=== PATIENT | female | born 1940 | race African-American/Black ===

== ENCOUNTER 2017-07-30 01:14 | Emergency (ER) | payer MEDICARE ==
[~2017-07-30] VITALS: Ht 165.1 cm; Wt 61.0 kg
[2017-07-30 04:22] LABS: BASOPHILS % 0.6 % (0.0-2.0); EOSINOPHILS % 0.8 % (0.0-5.0); HEMATOCRIT. 39.5 % (36.0-48.0); LYMPHOCYTES % 18.8 % (20.0-50.0); MEAN CORPUSCULAR HEMOGLOBIN 28.9 pg (28.0-32.0); MEAN CORPUSCULAR VOLUME 88.3 fL (81.0-99.0); MEAN PLATELET VOLUME 9.2 fl (7.4-10.4); MONOCYTES % 6.5 % (2.0-8.0); NEUTROPHILS % 73.3 % (40.0-76.0); PLATELET 212 x1000/uL (130-400); RED BLOOD CELL COUNT 4.48 mill/uL (4.2-5.4); RED CELL DISTRIBUTION WIDTH 13.4 % (11.6-14.6)
[2017-07-30 04:31] LABS: CARBON DIOXIDE 30 mEq/L (21-32); CHLORIDE 101 mEq/L (98-107); TROPONIN I < 0.02 ng/mL (0.00-0.04)
[2017-07-30 06:23] VITALS: BP 122/77
== END 2017-07-30 06:27 | disposition home or self-care (01) ==
LOC: ER 01:14
DX: M54.2 Cervicalgia (principal); M62.838 Other muscle spasm; I10 Essential (primary) hypertension; R55 Syncope and collapse; Z88.2 Allergy status to sulfonamides; Z91.041 Radiographic dye allergy status; Z91.040 Latex allergy status
CPT/HCPCS: 36415; 70450; 71010; 80053; 84484; 85025; 93005; 99285

== ENCOUNTER 2019-03-19 15:07 | Emergency (ER) | payer MEDICARE ==
[~2019-03-19] VITALS: Ht 152.4 cm; Wt 59.0 kg
[2019-03-19] MEDS ORDERED: HYDR25TA PO (15:16)
[2019-03-19] MEDS ORDERED: METF-414 PO (15:16)
[2019-03-19] MEDS ORDERED: RALO60TA13 PO (15:16)
[2019-03-19 16:46] LABS: EOSINOPHILS % 1.1 % (0.0-5.0); HEMATOCRIT. 41.7 % (36.0-48.0); HEMOGLOBIN. 13.9 g/dL (12.0-16.0); LYMPHOCYTES % 23.7 % (20.0-50.0); MEAN CORPUSCULAR HEMOGLOBIN 29.8 pg (28.0-32.0); MEAN CORPUSCULAR VOLUME 89.5 fL (81.0-99.0); MEAN PLATELET VOLUME 9.2 fl (7.4-10.4); MONOCYTES % 5.8 % (2.0-8.0); NEUTROPHILS % 68.4 % (40.0-76.0); PLATELET 224 x1000/uL (130-400); RED BLOOD CELL COUNT 4.65 mill/uL (4.2-5.4)
[2019-03-19 16:50] LABS: CHLORIDE 103 mEq/L (98-107)
[2019-03-19 16:52] LABS: INR 1.2; PROTHROMBIN TIME 11.8 sec (9.6-11.0)
[2019-03-19 16:57] LABS: CLARITY URINE CLEAR (CLEAR); COLOR URINE YELLOW (YELLOW); KETONES URINE NEGATIVE (NEGATIVE); LEUKOCYTE ESTERASE URINE 3+ (NEGATIVE); NITRITE URINE NEGATIVE (NEGATIVE); OCCULT BLOOD URINE 1+ (NEGATIVE); PH URINE 7.5 (4.5-8.0); PROTEIN URINE NEGATIVE (NEGATIVE); SPECIFIC GRAVITY URINE 1.009 (1.005-1.030); UROBILINOGEN URINE 0.2 E.U./dL (0.2-1.0)
[2019-03-19 18:45] VITALS: BP 143/78
== END 2019-03-19 18:56 | disposition home or self-care (01) ==
LOC: ER 15:47 → CANBEDREQ 22:22
DX: R42 Dizziness and giddiness (principal); N39.0 Urinary tract infection, site not specified; R73.03 Prediabetes; I10 Essential (primary) hypertension; Z88.2 Allergy status to sulfonamides; Z91.041 Radiographic dye allergy status; Z91.040 Latex allergy status
CPT/HCPCS: 36415; 71045; 83880; 84484; 93005; 99284

== ENCOUNTER 2024-01-01 12:43 | Emergency (ER) | payer MEDICARE ==
[~2024-01-01] VITALS: Ht 165.1 cm; Wt 50.0 kg
[~2024-01-01 12:43] MED LIST: ATOR20TA MT; CLOP-31 MT; EMPA10TA MT; HYDR25TA PO; LATA2.5D14 EACHEYE; LISI20TA31 MT; METF-414 PO; RALO60TA13 PO; TIMO5DRO32 EACHEYE
[2024-01-01 12:47] VITALS: O2SAT 97
[2024-01-01 13:56] LABS: HEMATOCRIT. 40.8 % (36.0-48.0); HEMOGLOBIN. 13.8 g/dL (12.0-16.0); MEAN CORPUSCULAR HGB CONC 33.9 g/dL (31.0-37.0); MEAN CORPUSCULAR VOLUME 88.5 fL (81.0-99.0); MEAN PLATELET VOLUME 9.8 fl (7.4-10.4); PLATELET 199 x1000/uL (130-400); RED BLOOD CELL COUNT 4.61 mill/uL (4.2-5.4); RED CELL DISTRIBUTION WIDTH 13.4 % (11.6-14.6); WHITE BLOOD COUNT 4.5 x1000/uL (4.5-11.0)
[2024-01-01 14:01] LABS: CARBON DIOXIDE 31 mEq/L (21-32); CHLORIDE 102 mEq/L (98-107); POTASSIUM 3.8 mEq/L (3.5-5.1); SODIUM 139 mEq/L (136-145)
[2024-01-01 14:02] LABS: D-DIMER 0.19 mg/L FEU (<0.50); DIFFERENTIAL COMMENT 1; INR 1.1; PROTHROMBIN TIME 12.2 sec (9.6-11.0)
[2024-01-01 14:06] LABS: CREATININE 0.8 mg/dL (0.6-1.0); GLUCOSE 98 mg/dL (70-105)
[2024-01-01 14:07] LABS: TROPONIN I HIGH SENSITIVITY 4 ng/L (3.0-34); UREA NITROGEN BLOOD 14 mg/dL (9-23)
[2024-01-01 14:08] LABS: ALANINE AMINOTRANSFERASE 29 IU/L (10-49); ALBUMIN 4.5 g/dL (3.2-4.8); ASPARTATE AMINOTRANSFERASE 32 IU/L (<34)
[2024-01-01 14:09] LABS: BILIRUBIN TOTAL 0.7 mg/dL (0.1-1.0)
[2024-01-01 14:12] LABS: ETHANOL BLOOD < 10 mg/dL (<10)
[2024-01-01 14:33] LABS: BG BASE EXCESS 3.1 mmol/L (-2.0-2.0); BG CARBOXYHEMOGLOBIN 0.7 % (0.5-1.5); BG DEOXYHEMOGLOBIN 3.3 % (0.0-5.0); BG FRACTION INSPIRED OXYGEN 21; BG HCO3 ACT 27.3 mmol/L (22.0-26.0); BG METHEMOGLOBIN 0.3 % (0.0-1.5); BG OXYGEN SATURATION 96.7 % (92.0-98.5); BG OXYHEMOGLOBIN 95.7 % (94.0-97.0); BG PCO2 40.3 mmHg (35.0-45.0); BG PH 7.449 (7.350-7.450); BG PO2 82.8 mmHg (75.0-100.0); BG SAMPLE SITE RIGHT RADIAL; BG TOTAL HEMOGLOBIN 14.5 g/dL (12.0-18.0); BG VENT MODE ROOM AIR
[2024-01-01 14:57] LABS: PLATELET ESTIMATE NORMAL
[2024-01-01 16:42] VITALS: BP 159/72; PULSE 81; RESP 16; TEMP 98.1
== END 2024-01-01 16:49 | disposition home or self-care (01) ==
LOC: ER 12:43
DX: R06.00 Dyspnea, unspecified (principal); F41.9 Anxiety disorder, unspecified; I10 Essential (primary) hypertension; Z86.73 Personal history of transient ischemic attack (TIA), and cerebral infarction without residual deficits; Z79.899 Other long term (current) drug therapy; Z20.822 Contact with and (suspected) exposure to COVID-19
CPT/HCPCS: 36415; 36600; 71045; 80053; 80320; 82375; 82805; 83880; 84484; 85025; 85379; 87426; 87804; 93005; 99285; G0480